=== PATIENT | female | born 1990 | race Two or more races ===

== ENCOUNTER 2017-10-21 21:27 | Emergency (ER) | payer MEDICAID, OTHER ==
[~2017-10-21] VITALS: Ht 157.5 cm; Wt 65.8 kg
[~2017-10-21 21:27] MED LIST: AUGMENTIN 875-1 EAC1 ORAL; IBUPROFEN600 MG ORAL; NKM; TRAMADOL HCL50 MG ORAL
--- NOTE | 2017-10-21 21:54 | Emergency Room Report ---
History of Present Illness General Chief Complaint: Upper Respiratory Illness Source: Patient Present Illness HPI Presents with cough, wheezing and discharge from her eyes. This began 3 days ago. She pinpoints it as starting after she inhaled some ammonia at home. She denies asthma. She's heard herself wheezing. There is some chest discomfort with coughing. No NVD. No rashes. No hemoptysis. Pain rated 8/10, pleuritic and in her chest without radiation. No meds taken. The discharge from her eyes is green. No dysuria. LNMP normal. No headache. Denies diabetes. Allergies: Coded Allergies: No Known Allergies (Unverified , 09/16/15) Patient History Past Medical History: see triage record Social History: Reports: smoking Last Menstrual Period: sep Reviewed Nursing Documentation: PMH: Agreed, PSxH: Agreed Nursing Documentation-PMH Past Medical History: No Stated History Review of Systems All Other Systems: negative except mentioned in HPI Physical Exam Vital Signs Date Time Temp Pulse Resp B/P (MAP) Pulse Ox O2 Delivery O2 Flow Rate FiO2 10/21/17 21:41 98.6 104 16 119/91 96 Room Air Sp02 EP Interpretation: reviewed, normal - though lower than anticipated as interpreted by me General Appearance: well appearing, no apparent distress, GCS 15 Head: normocephalic Eyes: bilateral eye normal inspection, bilateral eye PERRL ENT: moist mucus membranes Neck: supple Respiratory: wheezing - min post tussive and espiratory. Also min CWT Cardiovascular #1: regular rate, rhythm Cardiovascular #2: 2+ radial (R) Gastrointestinal: normal inspection, normal bowel sounds, non tender, no mass, non-distended Musculoskeletal: back normal, gait/station normal, normal range of motion, no calf tenderness Neurologic: alert, oriented x3, grossly normal Psychiatric: mood/affect normal Skin: normal inspection, warm/dry Medical Decision Making Diagnostic Impression: Primary Impression: Bronchospasm Additional Impressions: Conjunctivitis Qualified Codes: H10.33 - Unspecified acute conjunctivitis, bilateral Exposure to ammonia ER Course Patient presents with wheezing and cough with some green discharge from the eyes. Differential includes bronchitis, conjunctivitis, pneumonia, bronchospasm amongst others. This started with inhalation of ammonia. Oxygen saturation is slightly low at this time. The fact she has eye discharge suggests bacterial etiology (though could have been sensitized by inhalation of ammonia). Patient will receive breathing treatments and x-ray and Levaquin orally. In part the x-ray is indicated because of the history and the slightly low O2 sat. CXR normal. Improved with breathing treatment. Patient stable for outpatient observation and treatment. Chest X-Ray Diagnostic Results Chest X-Ray Diagnostic Results : Chest X-Ray Ordered: Yes # of Views/Limited/Complete: 1 View Indication: Other EP Interpretation: Yes Interpretation: no consolidation, no effusion, no pneumothorax, no acute cardiopulmonary disease Impression: No acute disease Electronically Signed by: Mark Rondon MD Last Vital Signs Date Time Temp Pulse Resp B/P (MAP) Pulse Ox O2 Delivery O2 Flow Rate FiO2 10/21/17 23:21 94 20 106/68 100 Room Air 10/21/17 22:08 21 10/21/17 22:00 96.0 10/21/17 21:41 98.6 Status: improved Disposition: HOME, SELF-CARE Condition: Improved Scripts Albuterol Sulfate* (ALBUTEROL SULFATE MDI*) 8.5 Gm Hfa.aer.ad 2 PUFF INH Q6H, #1 EA 0 Refills Prov: Mark Rondon M.D. 10/21/17 Guaifenesin/Codeine Phos* (ROBITUSSIN AC*) 118 Ml Liquid 5 ML ORAL Q6H Y for For Cough, #60 ML 0 Refills Prov: Mark Rondon M.D. 10/21/17 Levofloxacin* (LEVAQUIN*) 500 Mg Tablet 500 MG ORAL DAILY, #7 TAB Prov: Mark Rondon M.D. 10/21/17 Mark Rondon M.D. Oct 21, 2017 21:54
[2017-10-21] MEDS ORDERED: Albuterol ud Inhalation HHN ONE (22:00)
[2017-10-21] MEDS ORDERED: Levofloxacin 500mg tab ORAL ONE (22:00)
[2017-10-21] MEDS ORDERED: Ipratropium 0.02% Inh Soln 2.5ml UD HHN ONE (22:00)
[2017-10-21 22:06] VITALS: BP 106/68
[2017-10-21] MEDS ORDERED: LEVAQUIN500 MG ORAL (23:17)
[2017-10-21] MEDS ORDERED: ALBUTEROL SULF8.5 GM INH (23:17)
[2017-10-21] MEDS ORDERED: GUAIFENESIN-CO118 M1 ORAL (23:17)
[2017-10-21 23:21] VITALS: BP 106/68
--- NOTE | 2017-10-22 08:50 | Diagnostic Imaging Report ---
Indication: Cough Technique: One view of the chest Comparison: 12/12/2015 Findings: Lungs and pleural spaces are clear. Heart size is normal. There is no significant interim change Impression: No acute process This agrees with the preliminary interpretation provided by the emergency room physician
== END 2017-10-21 23:25 | disposition home or self-care (01) ==
LOC: EMR 22:03
DX: J98.01 Acute bronchospasm (principal); H10.9 Unspecified conjunctivitis; Z57.5 Occupational exposure to toxic agents in other industries
CPT/HCPCS: 71045; 94640; 94664; 99284

== ENCOUNTER 2019-01-18 13:59 | Emergency (ER) | payer OTHER ==
[~2019-01-18] VITALS: Ht 157.5 cm; Wt 90.7 kg
[~2019-01-18 13:59] MED LIST changes: +ALBUTEROL SULF8.5 GM INH; +GUAIFENESIN-CO118 M1 ORAL; +LEVAQUIN500 MG ORAL
[2019-01-18 14:00] VITALS: BP 132/64
--- NOTE | 2019-01-18 15:14 | Emergency Room Report ---
History of Present Illness General Chief Complaint: Pain Source: Patient Present Illness HPI 28-year-old female presents to the emergency department complaining of 10 out of 10 in severity pain to the lateral aspect of the right breast progressive 3 weeks. She states " I just have not gotten around to coming in yet" patient denies trauma or fall she denies currently breast-feeding she denies fevers, chills, erythema, nipple discharge or dimpling. Denies relieving factors at this time. Denies swollen/ tender lymph nodes or hx of ca. pain is exacerbated with palpation. Allergies: Coded Allergies: No Known Allergies (Unverified , 09/16/15) Patient History Past Medical History: see triage record Past Surgical History: none Pertinent Family History: none Last Menstrual Period: 12/28/18 Immunizations: UTD Reviewed Nursing Documentation: PMH: Agreed; PSxH: Agreed Nursing Documentation-PMH Past Medical History: No Stated History Review of Systems All Other Systems: negative except mentioned in HPI Physical Exam Vital Signs Date Time Temp Pulse Resp B/P (MAP) Pulse Ox O2 Delivery O2 Flow Rate FiO2 01/18/19 14:00 98.1 91 16 132/64 99 Room Air Sp02 EP Interpretation: reviewed, normal General Appearance: no apparent distress, alert, GCS 15, non-toxic Head: normocephalic, atraumatic Eyes: bilateral eye normal inspection, bilateral eye PERRL ENT: hearing grossly normal, normal voice Neck: full range of motion Respiratory: lungs clear, normal breath sounds, speaking full sentences, other - TTP to the lateral aspect of the right breast, no appreciable warmth, erythema or LAD. no dimpling or nipple d/c. Cardiovascular #1: regular rate, rhythm, no edema Gastrointestinal: normal bowel sounds, non tender, soft Rectal: deferred Genitourinary: normal inspection Musculoskeletal: back normal, gait/station normal, normal range of motion, non- tender Neurologic: alert, oriented x3, responsive, motor strength/tone normal, sensory intact, speech normal, grossly normal Psychiatric: judgement/insight normal Skin: normal color, no rash, warm/dry, well hydrated Lymphatic: no adenopathy Medical Decision Making PA Attestation Dr. Castellano is my supervising Physician whom patient management has been discussed with. Diagnostic Impression: Primary Impression: Breast pain, right ER Course 28-year-old female presents to the emergency department complaining of 10 out of 10 in severity pain to the lateral aspect of the right breast progressive 3 weeks. She states " I just have not gotten around to coming in yet" patient denies trauma or fall she denies currently breast-feeding she denies fevers, chills, erythema, nipple discharge or dimpling. Denies relieving factors at this time. Denies swollen/ tender lymph nodes or hx of ca. pain is exacerbated with palpation. Ddx considered but are not limited to cellulitis, abscess, mastitis, shingles, malignancy just to name a few. Vital signs: are WNL, pt. is afebrile H&PE are most consistent with Breast pain, non-acute. will cover for infection however suspect inflammation of the breast tissue. ORDERS: none required at this time, the diagnosis is clinical ED INTERVENTIONS: None required at this time. -I do not identify an emergent condition at this time. With current presentation , pt. is stable for close outpatient follow up and conservative treatment. D/ w pt. to return promptly to ED with worsening or new symptoms.- Pt. verbalizes' understanding and agreement with proposed treatment plan.proposed treatment plan. D.w pt. that US maybe ordered at the discretion of her PCP or COLLECTIONS CLERK. DISCHARGE: At this time pt. is stable for d/c to home. Will provide printed patient care instructions, and any necessary prescriptions. Care plan and follow up instructions have been discussed with the patient prior to discharge. Last Vital Signs Date Time Temp Pulse Resp B/P (MAP) Pulse Ox O2 Delivery O2 Flow Rate FiO2 01/18/19 14:09 98.8 86 18 118/70 94 Room Air Disposition: HOME, SELF-CARE Condition: Stable Scripts Cephalexin* (KEFLEX*) 500 Mg Capsule 500 MG ORAL EVERY 12 HOURS for 7 Days, #14 CAP 0 Refills Prov: Caryl Avalos 01/18/19 Ibuprofen* (MOTRIN*) 600 Mg Tablet 600 MG ORAL THREE TIMES A DAY, #30 TAB 0 Refills Prov: Caryl Avalos 01/18/19 Patient Instructions: Breast Tenderness Additional Instructions: Take medications as directed. Follow up with a COLLECTIONS CLERK within 3 days, even if your symptoms have resolved. * * Return sooner to ED if new symptoms occur, or current symptoms become worse. - Please note that this Emergency Department Report was dictated using [employer] tester technology software, occasionally this can lead to erroneous entry secondary to interpretation by the dictation equipment. Caryl Avalos Jan 18, 2019 15:14
[2019-01-18] MEDS ORDERED: CEPHALEXIN500 MG ORAL (15:15)
[2019-01-18] MEDS ORDERED: IBUPROFEN600 MG ORAL (15:15)
[2019-01-18 15:37] VITALS: BP 118/70
== END 2019-01-18 15:45 | disposition home or self-care (01) ==
LOC: EMR 15:40
DX: N64.4 Mastodynia (principal)
CPT/HCPCS: 99282

== ENCOUNTER 2019-02-03 22:16 | Emergency (ER) | payer OTHER ==
[~2019-02-03] VITALS: Ht 157.5 cm; Wt 90.7 kg
[~2019-02-03 22:16] MED LIST changes: +CEPHALEXIN500 MG ORAL
[2019-02-03] MEDS ORDERED: NKM (22:21)
[2019-02-03 22:32] VITALS: BP 113/72
--- NOTE | 2019-02-03 22:32 | NUR ---
ED Nurse Note: Pt arrived ED from home, c/o having skin" Boil" on her forehead for few days and pain 7/10. Pt is A/O X 4. Vital signs stable at this time, waiting for orders
[2019-02-03] MEDS ORDERED: IBUPROFEN600 MG ORAL (22:43)
[2019-02-03] MEDS ORDERED: CEPHALEXIN500 MG ORAL (22:43)
[2019-02-03 22:59] VITALS: BP 113/72
--- NOTE | 2019-02-03 22:59 | NUR ---
D/cER DISCHARGE NOTE: Patient is cleared to be discharged per Dr. George. Pt is aox4, on room air with stable vital signs. Pt was given dc and prescription instructions, pt was able to verbalize understanding. Pt ID band removed. pt is able to ambulate with steady gait and took all belongings.
--- NOTE | 2019-02-04 06:10 | Emergency Room Report ---
History of Present Illness General Chief Complaint: Skin Rash/Abscess Source: Patient Present Illness HPI Patient is a 29-year-old female presented after increased scalp lesion. Patient reported having gradual onset of symptoms she reports having increased discomfort to the vertex of her scalp where she noticed some increased drainage. She stated that she had not been having any fever. She reports having some moderate pain to the area. Allergies: Coded Allergies: No Known Allergies (Unverified , 09/16/15) Patient History Last Menstrual Period: 01/21/19 Now: No : 4 Para: 0 Reviewed Nursing Documentation: PMH: Agreed; PSxH: Agreed Nursing Documentation-PMH Past Medical History: No Stated History Review of Systems All Other Systems: negative except mentioned in HPI Physical Exam Vital Signs Date Time Temp Pulse Resp B/P (MAP) Pulse Ox O2 Delivery O2 Flow Rate FiO2 02/03/19 22:17 99.3 100 18 95 Room Air 02/03/19 22:32 113/72 General Appearance: well appearing, no apparent distress, alert, GCS 15 Head: atraumatic, other - scalp slight erythema and slight discharge ENT: hearing grossly normal, normal voice Neck: full range of motion, supple Respiratory: no respiratory distress, speaking full sentences Cardiovascular #1: normal inspection Gastrointestinal: normal inspection Neurologic: normal inspection, alert, oriented x3, responsive, normal gait Psychiatric: mood/affect normal Skin: other - scalp skin with slight erythema, no fluctuance Medical Decision Making Diagnostic Impression: Primary Impression: Folliculitis ER Course Patient presented for skin rash. Differential diagnosis include was not limited to folliculitis, contact dermatitis, abscess among others. Patient has a benign exam and does not appear to require any further imaging or laboratory testing at this time. She was noted to have some small area of erythema and drainage to the scalp. Does not appear to be any abscess. Patient was given prescription for Keflex for presumed folliculitis.Patient denies being . She is advised to follow-up with her primary care physician for recheck. Last Vital Signs Date Time Temp Pulse Resp B/P (MAP) Pulse Ox O2 Delivery O2 Flow Rate FiO2 02/03/19 22:59 98.9 98 18 113/72 96 Room Air Status: improved Disposition: HOME, SELF-CARE Condition: Stable Scripts Ibuprofen* (MOTRIN*) 600 Mg Tablet 600 MG ORAL Q8H PRN for For Pain, #30 TAB 0 Refills Prov: Chago George MD 02/03/19 Cephalexin* (KEFLEX*) 500 Mg Capsule 500 MG ORAL EVERY 6 HOURS, #28 CAP Prov: Chago George MD 02/03/19 Referrals: [facility],REFERRING (PCP) Patient Instructions: Folliculitis Chago George MD February 04, 2019 06:10
== END 2019-02-03 22:59 | disposition home or self-care (01) ==
LOC: EMR 22:48
DX: L73.9 Follicular disorder, unspecified (principal)
CPT/HCPCS: 99282

== ENCOUNTER 2020-06-15 19:57 | Emergency (ER) | payer OTHER ==
[~2020-06-15] VITALS: Ht 157.5 cm; Wt 81.2 kg
[2020-06-15 20:20] VITALS: BP 115/72
[2020-06-15] MEDS ORDERED: HYDROCORT 2.5%-30 GM TP (20:23)
[2020-06-15 20:35] VITALS: BP 119/70
--- NOTE | 2020-06-17 01:14 | Emergency Room Report ---
History of Present Illness General Chief Complaint: Skin Rash/Abscess Source: Patient Present Illness HPI Patient is a 30-year-old female presents for increased skin rash. Reports having multiple episodes of itchy skin. Onset several weeks ago. Prior history of surgery for weight loss. Patient denies any fever. Reports having diffuse itchiness. Reports having multiple areas of excoriated skin. Allergies: Coded Allergies: No Known Allergies (Unverified , 09/16/15) COVID-19 Screening Contact w/high risk pt: No Experienced COVID-19 symptoms?: No COVID-19 Testing performed [employer] CAPTAIN: No Patient History Past Medical History: see triage record Last Menstrual Period: 05/30/20 Now: No - unk : 0 Para: 0 Reviewed Nursing Documentation: PMH: Agreed; PSxH: Agreed Nursing Documentation-PMH Past Medical History: No Stated History Review of Systems All Other Systems: negative except mentioned in HPI Physical Exam Vital Signs Date Time Temp Pulse Resp B/P (MAP) Pulse Ox O2 Delivery O2 Flow Rate FiO2 06/15/20 20:04 98.2 66 17 115/72 (86) 95 Room Air Sp02 EP Interpretation: reviewed, normal General Appearance: normal inspection, well appearing, no apparent distress, alert, GCS 15, non-toxic Head: atraumatic ENT: normal ENT inspection, hearing grossly normal, normal voice Neck: normal inspection, full range of motion, supple, no bony tend Respiratory: normal inspection, lungs clear, normal breath sounds, no respiratory distress, no retraction, no wheezing Cardiovascular #1: regular rate, rhythm, no edema Gastrointestinal: normal inspection, normal bowel sounds, non tender, soft, no guarding, no hernia Genitourinary: no CVA tenderness Musculoskeletal: normal inspection, back normal, normal range of motion Neurologic: alert, motor strength/tone normal, electric blanket packer III-XII nml as tested, oriented x3, responsive, speech normal, normal inspection Psychiatric: normal inspection, judgement/insight normal, mood/affect normal Skin: other - Multiple areas of excoriated patches some dark discoloration to the neckline. Medical Decision Making Diagnostic Impression: Primary Impression: Rash and nonspecific skin eruption ER Course Patient present for skin rash. Differential diagnosis include was not limited to atopic dermatitis, scabies, allergic reaction among others. Because of complexity of patient's case laboratory tests and imaging studies were ordered. Patient presented for what appears to be a nonspecific dermatitis which may be atopic in nature. Patient had some recent weight loss surgery which may have been causing some difficulty with vitamins worsen. Patient was advised to take increase B vitamin intake. She was also given prescription for oral topical steroids. She was advised to follow-up with dermatology for recheck. The patient is advised to follow up with primary care doctor in 1-2 days. Patient is advised to return if any worsening condition or if any changes in status that are concerning. This report is dictated with [employer] solid waste landfill technician software which may o ccasionally lead to discrepancies related to use of this software. Last Vital Signs Date Time Temp Pulse Resp B/P (MAP) Pulse Ox O2 Delivery O2 Flow Rate FiO2 06/15/20 20:35 98.1 65 18 119/70 99 Room Air Status: improved Disposition: HOME, SELF-CARE Condition: Stable Scripts Ketoconazole/Hydrocortisone (Hydrocort 2.5%-Ketoconazole 2%) 30 Gm Cream..g. 30 GM TP DAILY, #30 GM Prov: Chago George MD 06/15/20 Referrals: [facility],REFERRING (PCP) Patient Instructions: Rash Additional Instructions: Follow up with your doctor for recheck. Take b vitamin supplement. Use m edications as prescribed. Return if worse. Chago George MD Jun 17, 2020 01:13
== END 2020-06-15 20:35 | disposition home or self-care (01) ==
LOC: EMR 20:33
DX: R21 Rash and other nonspecific skin eruption (principal)
CPT/HCPCS: 81025; Z7502; 99282